=== PATIENT | male | born 1985 | race Caucasian/White ===

== ENCOUNTER 2019-03-03 20:13 | Emergency (ER) | payer SELFPAY ==
[2019-03-03 21:07] VITALS: BP 116/73; PULSE 80; RESP 16; TEMP 98.4; O2SAT 96
--- NOTE | 2019-03-03 22:39 | ED PDOC ---
HPI: Abdomen Time Seen by Provider: 03/03/19 21:05 Chief Complaint (Nursing): Abdominal Pain Chief Complaint (Provider): Abdominal Pain, Left Ear Pain History Per: Patient, Reclamation Supervisor (Jerome Carrion #[id number]) History/Exam Limitations: no limitations Onset/Duration Of Symptoms: Days (x1 for abdomnial pain; x1 week for left ear pain) Current Symptoms Are (Timing): Still Present Additional Complaint(s): 33 year old male with no pmhx presents to the ED for evaluation of let ear and abdominal pain. Patient reports that one week ago he had a flu-like illness which left him with left ear pain / hearing loss, which he has been using several q-tips daily for to clean the ear. Additionally, patient states he developed pain which spans across his mid abdomen and was not relieved by "gas medication" that he took. Otherwise, denies any associated nausea, vomiting, diarrhea, and constipation. PMD: none provided Past Medical History Reviewed: Historical Data, Nursing Documentation, Vital Signs Vital Signs: Last Vital Signs Temp 98.4 F 03/03/19 20:58 Pulse 80 03/03/19 20:58 Resp 16 03/03/19 20:58 BP 116/73 03/03/19 20:58 Pulse Ox 96 03/03/19 20:58 - Medical History PMH: No Chronic Diseases - Surgical History Surgical History: No Surg Hx - Family History Family History: States: Unknown Family Hx - Social History Current smoker - smoking cessation education provided: No - Home Medications Home Medications: Ambulatory Orders Medication Instructions Recorded Ciprofloxacin/Dexamethasone 4 drop OU BID #1 bottle 03/03/19 [Ciprodex Otic] Famotidine [Pepcid] 20 mg PO BID #20 tab 03/03/19 Simethicone [Gas Relief 80] 80 mg PO DAILY #12 ctb 03/03/19 - Allergies Allergies/Adverse Reactions: Allergies Allergy/AdvReac Type Severity Reaction Status Date / Time No Known Allergies Allergy Verified 03/03/19 20:58 Review of Systems ROS Statement: Except As Marked, All Systems Reviewed And Found Negative ENT: Positive for: Ear Pain (left associated with hearing loss) Gastrointestinal: Positive for: Abdominal Pain (across his middle abdomen). Negative for: Nausea, Vomiting, Diarrhea, Constipation Genitourinary Male: Negative for: Dysuria, Frequency, Incontinence Physical Exam - Reviewed Nursing Documentation Reviewed: Yes Vital Signs Reviewed: Yes - Physical Exam Appears: Positive for: Well, Non-toxic, No Acute Distress Head Exam: Positive for: ATRAUMATIC, NORMOCEPHALIC Skin: Positive for: Normal Color, Warm Eye Exam: Positive for: Normal appearance, EOMI, PERRL ENT: Positive for: TM Is/Are (left TM with some dried blood but no perforation or pus or significant erythema; right TM unremarkable) Neck: Positive for: Normal, Painless ROM, Supple Cardiovascular/Chest: Positive for: Regular Rate, Rhythm Respiratory: Positive for: Normal Breath Sounds. Negative for: Respiratory Distress Gastrointestinal/Abdominal: Positive for: Soft, Tenderness (right mid quadrant tenderness and left mid quadrant tenderness, R>L). Negative for: Guarding, Rebound, Other (burton's sign and mcburney's point tenderness) Back: Positive for: Normal Inspection Extremity: Positive for: Normal ROM (all extremities) Neurological/Psych: Positive for: Awake, Alert, Oriented (x3). Negative for: Motor/Sensory Deficits - ECG O2 Sat by Pulse Oximetry: 96 (RA) Pulse Ox Interpretation: Normal Medical Decision Making Medical Decision Making: A/P: 33 year old male with TM irritation due to excessive q-tip usage and abdominal pain likely related to gas or possible constipation due to new diet --not concerned for acute appendicitis, gallbladder related issue, or div erticular disease --patient very well appearing with stable vital signs --will obtain XR to observe bowel gas pattern and provide symptomatic relief Time: 2129 Initial Plan: --Obstructive series XR --Bentyl 20mg PO --Ibuprofen 600mg PO --Pepcid 20mg PO --Reevaluate Time: 2299 --[facility] Reclamation Supervisor Used: FELIPA --Patient reports improvement in his symptoms --Return precautions discussed: worsening pain, vomiting, fevers, etc. --Advised healthier diet and to followup with GI --Very well appearing upon discharge Scribe Attestation: Documented by Brisa Mcmahon, acting as a scribe for Prashant Garcia MD. Provider Scribe Attestation: All medical record entries made by the Scribe were at my direction and personally dictated by me. I have reviewed the chart and agree that the record accurately reflects my personal performance of the history, physical exam, medical decision making, and the department course for this patient. I have also personally directed, reviewed, and agree with the discharge instructions and disposition. Disposition - Clinical Impression Clinical Impression: Abdominal pain - Disposition Referrals: Dallas Márquez MD [Staff Provider] - Disposition: Routine/Home Disposition Time: 23:00 Condition: IMPROVED Prescriptions: Ciprofloxacin/Dexamethasone [Ciprodex Otic] 4 drop OU BID #1 bottle Famotidine [Pepcid] 20 mg PO BID #20 tab Simethicone [Gas Relief 80] 80 mg PO DAILY #12 ctb Instructions: Acute Abdomen (Belly Pain), Adult (DC), Ulcer and Gastritis Diet Forms: [facility] (Omani) Print Language: CHADIAN
--- NOTE | 2019-03-04 14:36 | RAD ---
Date of service: 03/03/2019 PROCEDURE: Radiographs of the chest and abdomen (obstructive series) HISTORY: abd pain COMPARISON: No prior. TECHNIQUE: AP radiograph of the chest, with upright and supine radiographs of the abdomen. 3 views obtained. FINDINGS: CHEST: Lungs: Clear. Cardiovascular: Normal size heart. No pulmonary vascular congestion. No aortic atherosclerotic calcification present Pleura: No pleural fluid. No pneumothorax. Other findings: None. ABDOMEN AND PELVIS: Bowel: Unremarkable bowel gas pattern. No evidence of mechanical obstruction. Constipation Free air: None. Bones: Unremarkable. Other findings: None. IMPRESSION: Unremarkable radiographs of chest and abdomen. No evidence of mechanical bowel obstruction.
== END 2019-03-04 00:15 | disposition home or self-care (01) ==
LOC: H.ER 20:13
DX: R10.9 Unspecified abdominal pain (principal)

== ENCOUNTER 2019-03-12 23:41 | Emergency (ER) | payer SELFPAY ==
[2019-03-13 00:12] VITALS: RESP 18; O2SAT 97
[2019-03-13] MEDS ORDERED: Iohexol 240 (50 ml) PO ONE (00:26)
[2019-03-13] MEDS ORDERED: Iohexol 240 (50 ml) ONE (00:38)
[2019-03-13 01:07] LABS: BASO # 0.1 K/uL (0.0-0.2); BASO % 0.8 % (0.0-2.0); EOS # 0.3 K/uL (0.0-0.7); EOS % 3.7 % (0.0-4.0); HEMOGLOBIN 13.8 g/dL (12.0-18.0); LYMPH # 2.8 K/uL (1.0-4.3); LYMPH % 35.2 % (20.0-40.0); MEAN CELL VOLUME 87.8 fl (80.0-94.0); MEAN PLATELET VOLUME 8.1 fl (7.2-11.7); NEUT # 3.9 K/uL (1.8-7.0); NEUT % 48.3 % (50.0-75.0); NRBC % 0.1 % (0.0-0.0); RBC 4.76 Mil/uL (4.40-5.90); RED CELL DISTRIBUTION WIDTH 13.1 % (11.5-14.5)
[2019-03-13 01:15] LABS: ALB/GLOB RATIO 1.3 (1.0-2.1); ALBUMIN 4.5 g/dL (3.5-5.0); ALT/SGPT 27 U/L (21-72); AST/SGOT 26 U/L (17-59); BLOOD UREA NITROGEN 17 mg/dl (9-20); CALCIUM 9.2 mg/dL (8.4-10.2); GFR NON-AFRICAN AMERICAN > 60
--- NOTE | 2019-03-13 01:18 | ED PDOC ---
HPI: Chest Pain Time Seen by Provider: 03/13/19 00:13 Chief Complaint (Nursing): Abdominal Pain Chief Complaint (Provider): Chest Pain History Per: Patient History/Exam Limitations: no limitations Onset/Duration Of Symptoms: Days (x7) Additional Complaint(s): 33 years old Haitian male presents to ER for evaluation of chest pain associated with nasal congestion for the past week. Patient was seen in the ED and was complaining of abdominal pain. He had abdomen x-ray during his visit and was discharged. Patient reports he has been very constipated and taking Simethicone and Pepcid. He states he feels pain with deep breath, reports normal appetite and states his last bowel movement was today but normal. Patient denies fevers. PMD: None provided Past Medical History Reviewed: Historical Data, Nursing Documentation, Vital Signs Vital Signs: Last Vital Signs Temp 98 F 03/13/19 00:10 Pulse 79 03/13/19 00:10 Resp 18 03/13/19 00:10 BP 118/76 03/13/19 00:10 Pulse Ox 97 03/13/19 00:10 Primary Care Provider: FAMILY PROVIDER,NO - Medical History PMH: No Chronic Diseases - Surgical History Surgical History: No Surg Hx - Family History Family History: States: Unknown Family Hx - Social History Current smoker - smoking cessation education provided: No Alcohol: None Drugs: Denies - Home Medications Home Medications: Ambulatory Orders Medication Instructions Recorded Ciprofloxacin/Dexamethasone 4 drop OU BID #1 bottle 03/03/19 [Ciprodex Otic] Famotidine [Pepcid] 20 mg PO BID #20 tab 03/03/19 Simethicone [Gas Relief 80] 80 mg PO DAILY #12 ctb 03/03/19 - Allergies Allergies/Adverse Reactions: Allergies Allergy/AdvReac Type Severity Reaction Status Date / Time No Known Allergies Allergy Verified 03/13/19 00:12 Review of Systems Constitutional: Negative for: Fever ENT: Positive for: Nose Congestion Cardiovascular: Positive for: Chest Pain Gastrointestinal: Positive for: Constipation Physical Exam - Reviewed Nursing Documentation Reviewed: Yes Vital Signs Reviewed: Yes - Physical Exam Appears: Positive for: Well, No Acute Distress Head Exam: Positive for: ATRAUMATIC, NORMOCEPHALIC Skin: Positive for: Normal Color, Warm, Dry Eye Exam: Positive for: Normal appearance, EOMI, PERRL ENT: Positive for: Normal ENT Inspection Neck: Positive for: Normal, Painless ROM, Supple Cardiovascular/Chest: Positive for: Regular Rate, Rhythm. Negative for: Murmur Respiratory: Positive for: Normal Breath Sounds. Negative for: Respiratory Distress Gastrointestinal/Abdominal: Positive for: Normal Exam, Soft. Negative for: Tenderness Back: Positive for: Normal Inspection. Negative for: L CVA Tenderness, R CVA Tenderness Extremity: Positive for: Normal ROM. Negative for: Pedal Edema, Deformity Neurological/Psych: Positive for: Awake, Alert, Oriented (x3) - Laboratory Results Result Diagrams: 03/13/19 01:04 03/13/19 01:04 - ECG O2 Sat by Pulse Oximetry: 97 (RA) Pulse Ox Interpretation: Normal Medical Decision Making Medical Decision Making: Time: 24 Initial impression: 33 years old male with nonspecific chest pain and constipation Initial Plan: --CT Abdomen/ Pelvis --EKG --CMP --Troponin --Urine dipstick --CBC --Chest x-ray --Urinalysis --Enulose 20 mg PO --Omnipaque 50 mg Po --Toradol [address] Abdomen/ Pelvis Findings: Enlarged tip of the appendix measuring 1.1 cm in its largest transverse dimension. Mild surrounding inflammatory fat stranding. Uncomplicated colonic diverticulosis. The liver is of uniform attenuation without mass or defect. There is no intra or extrahepatic biliary ductal dilatation. The spleen is normal. The gallbladder is within normal limits. The pancreas is of normal contour and attenuation characteristics. There is no evidence of adrenal mass. Both kidneys demonstrate prompt and equal nephrograms. The kidneys are normal in size, shape and configuration. There is no evidence of renal or ureteral mass. No renal or ureteral calculi are identified. There is no hydroureter or hydronephrosis. There is no bowel wall thickening. No evidence for small or large bowel obstruction. There is no evidence of abdominal ascites or lymphadenopathy. There is no evidence of intrinsic or extrinsic bladder mass. There is no pelvic ascites or lymphadenopathy. Images of the lung bases show no evidence of pleural or parenchymal mass. There are no pleural effusions. The bony structures are free of lytic or blastic l esions. IMPRESSION: Uncomplicated acute appendicitis. No perforation or abscess formation. [address] Puri, surgical territory manager, who is coming to evaluate patient. ScribeAttestation: Documented byBeatrice Santos, acting as a scribe for Scotty Lilly MD. Provider ScribeAttestation: All medical record entries made by the Scribe were at my direction and personally dictated by me. I have reviewed the chart and agree that the record accurately reflects my personal performance of the history, physical exam, medical decision making, and the department course for this patient. I have also personally directed, reviewed, and agree with the discharge instructions and disposition. Time: 657 -- Patient evaluated by surgical service, Dr. Puri who discussed case with Dr. Pena and states patient is stable for discharge home with a diagnosis of constipation. Return precautions provided. Scribe Attestation: Documented by Ulises Downing, acting as a scribe for Scotty Lilly MD. Provider Scribe Attestation: All medical record entries made by the Scribe were at my direction and personally dictated by me. I have reviewed the chart and agree that the record accurately reflects my personal performance of the history, physical exam, medical decision making, and the department course for this patient. I have also personally directed, reviewed, and agree with the discharge instructions and disposition. Disposition - Clinical Impression Clinical Impression: Constipation - Patient ED Disposition Is Patient to be Admitted: No Counseled Patient/Family Regarding: Studies Performed, Diagnosis, Rx Given - Disposition Disposition: Routine/Home Disposition Time: 06:58 Condition: STABLE Instructions: Constipation in Adults Forms: [facility] (Qatari) Print Language: ARABIC
[2019-03-13] MEDS ORDERED: Sodium Chloride 0.9% 50 ML IV ONE (02:43)
[2019-03-13] MEDS ORDERED: Iohexol 300 100 ML IJ ONE (02:43)
[2019-03-13 07:00] VITALS: BP 122/71; PULSE 71; TEMP 98
--- NOTE | 2019-03-13 07:31 | CP.PCM.CON ---
History of Present Illness - History of Present Illness History of Present Illness: Surgery Consult Note- Dr. Pena Reason for consult: R/O Appendicitis 33M w/ no significant pmhx presents to [facility] ED for Rib pain that is worse with breathing and reproducible to palpation, and complaining of constipation for the last 1 week. Denies subjective fevers, chills, nausea, vomiting, diarrhea, recent foreign travel, recent sick contacts, changes in urinary habit, BRBPR. ED work up revealed possible early noncomplicated early appendicitis. Denies slick-umbilical or RLQ abdominal tenderness. PMH: Denies PSH: denies ALL: NKDA SocialHx: denies tobacco, etoh, recreational drug use FH: non-contributory Review of Systems - Review of Systems All systems: reviewed and no additional remarkable complaints except - Constitutional Constitutional: As Per HPI Past Patient History - Past Social History Alcohol: None Drugs: Denies - PSYCHIATRIC Hx Substance Use: No - SURGICAL HISTORY Hx Surgeries: No - ANESTHESIA Hx Anesthesia: No Meds Allergies/Adverse Reactions: Allergies Allergy/AdvReac Type Severity Reaction Status Date / Time No Known Allergies Allergy Verified 03/13/19 00:12 Physical Exam - Constitutional Appears: Non-toxic, No Acute Distress - Head Exam Head Exam: ATRAUMATIC - Eye Exam Eye Exam: EOMI. absent: Scleral icterus - ENT Exam ENT Exam: Mucous Membranes Moist - Respiratory Exam Respiratory Exam: NORMAL BREATHING PATTERN. absent: Accessory Muscle Use, Respiratory Distress - Cardiovascular Exam Cardiovascular Exam: REGULAR RHYTHM. absent: Bradycardia, Tachycardia - GI/Abdominal Exam GI & Abdominal Exam: Normal Bowel Sounds, Soft. absent: Diminished Bowel Sounds, Distended, Firm, Guarding, Hernia, Rigid, Tenderness Additional comments: no abdominal tenderness to palpation - Rectal Exam Additional comments: Good tone, no baltazar blood. stool in rectal vault - Extremities Exam Extremities exam: Negative for: calf tenderness - Neurological Exam Neurological exam: Alert, Oriented x3 - Psychiatric Exam Psychiatric exam: Normal Affect Results - Vital Signs Recent Vital Signs: Last Vital Signs Temp 98.0 F 03/13/19 07:00 Pulse 71 03/13/19 07:00 Resp 18 03/13/19 07:00 BP 122/71 03/13/19 07:00 Pulse Ox 97 03/13/19 07:00 - Labs Result Diagrams: 03/13/19 01:04 03/13/19 01:04 Labs: Laboratory Results - last 24 hr 03/13/19 03/13/19 01:04 01:04 WBC 8.0 RBC 4.76 Hgb 13.8 Hct 41.8 MCV 87.8 MCH 29.0 MCHC 33.0 RDW 13.1 Plt Count 306 MPV 8.1 Neut % (Auto) 48.3 L Lymph % (Auto) 35.2 Noble % (Auto) 12.0 H Eos % (Auto) 3.7 Baso % (Auto) 0.8 Neut # (Auto) 3.9 Lymph # (Auto) 2.8 Noble # (Auto) 1.0 H Eos # (Auto) 0.3 Baso # (Auto) 0.1 Sodium 137 Potassium 3.9 Chloride 98 Carbon Dioxide 29 Anion Gap 14 BUN 17 Creatinine 0.8 Est GFR ( Amer) > 60 Est GFR (Non-Af Amer) > 60 Random Glucose 98 Calcium 9.2 Total Bilirubin 0.4 AST 26 ALT 27 Alkaline Phosphatase 83 Troponin I < 0.0120 Total Protein 7.9 Albumin 4.5 Globulin 3.4 Albumin/Globulin Ratio 1.3 Assessment & Plan - Assessment and Plan (Free Text) Assessment: 33M w/ chest pain, constipation, unlikely appendicitis Carpio Score: 1- unlikely appendicitis Plan: - unlikely acute appendicitis - cleared for discharge from a surgical stand point - if symptoms return or worsen, return to the ER for re-evaluation - discussed case in detail with Dr. [facility]ena [facility]
--- NOTE | 2019-03-13 09:26 | RAD ---
Date of service: 03/13/2019 HISTORY: chest pain COMPARISON: No prior. TECHNIQUE: 1 view obtained. FINDINGS: LUNGS: Poor inspiration with low lung volumes crowded bronchovascular markings and mild bibasilar atelectasis PLEURA: No significant pleural effusion identified, no pneumothorax apparent. CARDIOVASCULAR: No aortic atherosclerotic calcification present. Borderline-mild cardiomegaly no pulmonary vascular congestion. OSSEOUS STRUCTURES: No significant abnormalities. VISUALIZED UPPER ABDOMEN: Normal. OTHER FINDINGS: None. IMPRESSION: Poor inspiration with low lung volumes crowded bronchovascular markings and mild bibasilar atelectasis
--- NOTE | 2019-03-13 12:27 | CT ---
Date of service: 03/13/2019 PROCEDURE: CT abdomen and pelvis HISTORY: Abdominal pain COMPARISON: None. TECHNIQUE: Contiguous axial images of the abdomen and pelvis performed following intravenous injection of approximately 95 cc Omnipaque 300 contrast material. Additional 2D sagittal reformats generated. Radiation dose: Total exam DLP = 944.3 mGy-cm. This CT exam was performed using one or more of the following dose reduction techniques: Automated exposure control, adjustment of the mA and/or kV according to patient size, and/or use of iterative reconstruction technique. FINDINGS: LOWER THORAX: Heart size is mildly enlarged. No significant pericardial effusion. Minor bibasilar atelectasis. LIVER: Liver exhibits relatively normal size measuring just over 18 cm in CC dimension. Mild diffuse fatty hepatic infiltration. No obvious hepatic mass collection or calcification. GALLBLADDER AND BILE DUCTS: Gallbladder physiologically distended. No evidence of intraluminal gallbladder calculi. PANCREAS: Unremarkable. No mass. No ductal dilatation. SPLEEN: Unremarkable. No splenomegaly. ADRENALS: There are no adrenal lesions. KIDNEYS AND URETERS: Kidneys demonstrate relatively symmetric nephrograms. No evidence of nephrolithiasis or hydronephrosis. BLADDER: Grossly unremarkable. REPRODUCTIVE: Unremarkable. APPENDIX: The appendix is dilated with thick-walled appearance and there are mild infiltration changes seen in the adjacent Elif appendiceal mesenteric. Findings consistent with acute appendicitis. BOWEL: Evaluation of the bowel is somewhat limited due to incomplete opacification. Stomach is distended with food debris liquid and air admixed with oral contrast material. Visualized loops of small bowel exhibit normal contour and caliber. No evidence of acute mechanical small bowel obstruction. There is a large amount of stool seen throughout the colon consistent with fecal retention/constipation. PERITONEUM: Unremarkable. No fluid collection. No free air. Small fat containing umbilical hernia. LYMPH NODES: There are multiple small to borderline mesenteric lymph nodes. Rule out underlying mild mesenteric adenitis VASCULATURE: Unremarkable. No aortic aneurysm. No aortic atherosclerotic calcification or mural plaque present. BONES: Minor multilevel degenerative spondylosis of the lower thoracic and lumbar spine. OTHER FINDINGS: None. IMPRESSION: Findings consistent with acute appendicitis. Constipation. Multiple small mesenteric lymph nodes; rule out underlying mild mesenteric adenitis. Fatty hepatic infiltration.
--- NOTE | 2019-03-13 20:07 | CARD ---
APPROVED REPORT Date of service: 03/12/2019 EKG Measurement Heart [id number] <Conclusion> Normal sinus rhythm Moderate voltage criteria for LVH, may be normal variant Borderline ECG
== END 2019-03-13 07:21 | disposition home or self-care (01) ==
LOC: H.ER 23:41
DX: K59.00 Constipation, unspecified (principal)
CPT/HCPCS: 71045; 74177; 80053; 84484; 85025; 93005; 99283; J1885; Q9966; Q9967